=== PATIENT | female | born 1965 | race Caucasian/White ===

== ENCOUNTER 2016-06-09 17:04 | Emergency (ER) | payer BC, OTHER ==
[~2016-06-09] VITALS: Ht 162.6 cm; Wt 51.0 kg
[~2016-06-09 17:04] MED LIST: CLON.5 PO; LEXA20TA PO; LISI-363 PO; NEUR300C PO; OXYC30TA PO; PERC10TA27 PO; PROT40TA PO; SOMA350T PO; TOPI25TA2 PO; [UNRECOGNIZED DRUG - REMARK]
[2016-06-09 17:18] VITALS: BP 124/76; PULSE 92; RESP 16; TEMP 98.2; O2SAT 96
[2016-06-09] MEDS ORDERED: LISI-515 PO (18:47)
[2016-06-09] MEDS ORDERED: SOMA350T PO (18:47)
[2016-06-09] MEDS ORDERED: LEXA20TA PO (18:47)
[2016-06-09] MEDS ORDERED: [UNRECOGNIZED DRUG - CODE] PO (18:47)
[2016-06-09] MEDS ORDERED: TOPI1TAB36 PO (18:47)
[2016-06-09] MEDS ORDERED: LIDOCAINE 1%/EPINEPHrine 1:100,000 SOLN 20 ML VIAL INFIL ONE (19:15)
--- NOTE | 2016-06-09 19:17 | PD ---
HPI Chief Complaint: Skin Problem Time Seen by Provider: 19:10 Travel History International Travel<30 days: No Contact w/Intl Traveler<30days: No Traveled to known affect area: No History of Present Illness HPI 51 year-old female presents to the emergency room for evaluation of cystic acne. Patient states she first developed the lump 7 days ago. She went to her solder technician 3 days after the start and he gave her 2 cortisone injections and put her on Bactrim. Patient states cortisone injections didn't seem to help. She has been taking Bactrim as prescribed but states the cystic lesion seems to be increasing in size. She called her solder technician today and he recommended she come to the emergency room. Patient denies fever, chills, nausea, vomiting. Denies significant pain or drainage from the area. PFSH Past Medical History Blood Disorders: No Anxiety: Yes Cancer: No Cardiovascular Problems: Yes Chemotherapy: No Chest Pain: No Endocrine: No Genitourinary: No Hypertension: Yes Immune Disorder: No Musculoskeletal: Yes (SPINAL FUSION) Neurologic: No Psychiatric: No Reproductive: No Respiratory: Yes (PRN ALBUTERAL (SMOKER)) Renal Failure: No ?: Not Past Surgical History Abdominal Surgery: Yes ("STOMACH RUPTURE") AICD: No Appendectomy: Yes Arteriovenous Shunt: No Endocrine Surgery: Yes (APPENDECTOMY) Gynecologic Surgery: Yes (HYST) Hysterectomy: Yes Insulin Pump: No Joint Replacement: No Pacemaker: No Other Surgery: Yes (SPINAL FUSION) Social History Alcohol Use: Yes (SEVERAL TIMES PER WEEK) Tobacco Use: Yes (1PPD) Substance Use: Yes (POSITIVE FOR POT) Allergies-Medications (Allergen,Severity, Reaction): Coded Allergies: No Known Allergies (Verified , 06/09/16) Reported Meds & Prescriptions Reported Meds & Active Scripts Active Reported Biaxin (Clarithromycin) 250 Mg Tab 250 Mg PO BID Topiramate 50 Mg Tab 50 Mg PO TID Lisinopril 20 Mg Tab 20 Mg PO DAILY Lexapro (Escitalopram Oxalate) 20 Mg Tab 20 Mg PO DAILY Soma (Carisoprodol) 350 Mg Tab 350 Mg PO QID PRN Review of Systems Except as stated in HPI: all other systems reviewed are Neg Physical Exam Narrative GENERAL: Well-nourished, well-developed female in no acute distress. Afebrile. Ambulatory. SKIN: Warm and dry. There is an indurated area in the right lower lip which measures about 1 cm in diameter. It is fluctuant but there is no pointing or drainage. There is a zone of inflammation around it but no lymphangitis. HEAD: Normocephalic. EYES: No scleral icterus. No injection or drainage. NECK: Supple, trachea midline. No JVD or lymphadenopathy. Data Data Last Documented VS Vital Signs Date Time Temp Pulse Resp B/P Pulse Ox O2 Delivery O2 Flow Rate FiO2 06/09/16 17:18 98.2 92 16 124/76 96 Orders Lidocai-Epi 1%-1:100,000 Inj (Xylocaine- (06/09/16 19:15) MDM Medical Decision Making Medical Screen Exam Complete: Yes Emergency Medical Condition: Yes Medical Record Reviewed: Yes Differential Diagnosis Abscess versus folliculitis versus cystic acne Narrative Course 51-year-old female presents to the emergency room for evaluation of cystic acne that began one week ago. She went to her solder technician who put her on Bactrim and gave her 2 cortisone injections but she states it is not helping her symptoms. Physical exam reveals a 1 cm area of induration in the right lower lip. There is no lymphangitis, surrounding inflammation, increased warmth, pain , or purulent drainage. Appears to be more cystic than infected. Cyst was drained to alleviate pressure and collect culture. There is no purulent or foul -smelling drainage, just thick sebaceous drainage. Culture was sent to the lab but will likely not be useful as patient has been on antibiotics for 3 days. Told to follow up with the solder technician for further management of acne or return for worsening symptoms. She understands and agrees to plan. Procedures Procedure Narrative INCISION AND DRAINAGE OF ABSCESS: The area was prepped and was sterilely draped. A subcutaneous wheal of 1% lidocaine with epinephrine with a total number 2 mL was used to anesthetize the area properly. A number 11 scalpel was used to make a 0.3 cm incision across the area of the abscess. The abscess was drained, complex loculations were broken down, and irrigated with normal saline. Cultures were obtained. Sterile dressing applied. Diagnosis Primary Impression: Cutaneous abscess of face Referrals: [facility] Patient Instructions: Abscess (ED), General Instructions Additional Instructions: Rest and drink plenty of fluids. Continue Bactrim as directed, until gone. Follow up with a solder technician. Return to emergency room for worsening symptoms, as discussed. Disposition: 01 DISCHARGE HOME Condition: Stable Maureen Espinosa Jun 09, 2016 19:17
[2016-06-09] MEDS ORDERED: IBUPROFEN 600 MG TAB PO ONE (20:45)
== END 2016-06-09 20:58 | disposition home or self-care (01) ==
LOC: PHEFT 17:04
DX: L02.01 Cutaneous abscess of face (principal); I10 Essential (primary) hypertension; F17.210 Nicotine dependence, cigarettes, uncomplicated
CPT/HCPCS: 10060; 87070; 87205

== ENCOUNTER 2017-04-24 09:49 | Emergency (ER) | payer OTHER ==
[~2017-04-24] VITALS: Ht 160 cm; Wt 50.0 kg
[~2017-04-24 09:49] MED LIST changes: -CLON.5 PO; -LISI-363 PO; +LISI-515 PO; -NEUR300C PO; -OXYC30TA PO; -PERC10TA27 PO; -PROT40TA PO; -TOPI25TA2 PO; +TOPI50TA7 PO; +[UNRECOGNIZED DRUG - CODE] PO; -[UNRECOGNIZED DRUG - REMARK]
[2017-04-24 09:50] VITALS: BP 143/105; PULSE 114; RESP 20; TEMP 98.9; O2SAT 98
[2017-04-24] MEDS ORDERED: TOPI50TA7 PO (10:19)
[2017-04-24] MEDS ORDERED: PANT40TA3 PO (10:19)
[2017-04-24] MEDS ORDERED: CITA40TA4 PO (10:19)
[2017-04-24] MEDS ORDERED: BUSP15TA PO (10:19)
[2017-04-24] MEDS ORDERED: CLON1TAB PO (10:19)
[2017-04-24] MEDS ORDERED: PERC10TA27 PO (10:19)
[2017-04-24] MEDS ORDERED: MIRTA15 PO (10:19)
[2017-04-24] MEDS ORDERED: CLON1 PO (10:25)
--- NOTE | 2017-04-24 10:25 | PD ---
HPI Chief Complaint: Medical Clearance Time Seen by Provider: 10:07 Travel History International Travel<30 days: No Contact w/Intl Traveler<30days: No Traveled to known affect area: No History of Present Illness HPI So 52 year-old woman, brought in by family, on multiple anxiety medications including benzodiazepines, opioids,, SSRI, ran out of her medications several days ago. Has been jittery, not sleeping, having visual hallucinations. Brought in by family due to concern for the visual hallucinations. No auditory hallucinations. No confusion or delirium. No other complaints. History Past Medical History Narrative Medical Anxiety Tetanus Vaccination: < 5 Years Social History Alcohol Use: Yes (SEVERAL TIMES PER WEEK) Tobacco Use: Yes (1PPD) Allergies-Medications (Allergen,Severity, Reaction): Coded Allergies: No Known Allergies (Verified Adverse Reaction, Unknown, 04/24/17) Reported Meds & Prescriptions Reported Meds & Active Scripts Active Reported Mirtazapine 15 Mg Tab 15 Mg PO HS Topiramate 50 Mg Tab 50 Mg PO BID Citalopram (Citalopram Hydrobromide) 40 Mg Tab 40 Mg PO DAILY Clonazepam 1 Mg Tab 1 Mg PO QID Percocet (Oxycodone-Acetaminophen) 10-325 mg Tab 1 Tab PO Q4H PRN Pantoprazole (Pantoprazole Sodium) 40 Mg Tab 40 Mg PO DAILY Buspirone (Buspirone HCl) 15 Mg Tab 15 Mg PO TID Biaxin (Clarithromycin) 250 Mg Tab 250 Mg PO BID Topiramate 50 Mg Tab 50 Mg PO TID Lisinopril 20 Mg Tab 20 Mg PO DAILY Lexapro (Escitalopram Oxalate) 20 Mg Tab 20 Mg PO DAILY Soma (Carisoprodol) 350 Mg Tab 350 Mg PO QID PRN Review of Systems Except as stated in HPI: all other systems reviewed are Neg Physical Exam Narrative GENERAL: Well-appearing 52 year-old woman, no acute distress. Jittery and anxious. SKIN: Focused skin assessment warm/dry. HEAD: Atraumatic. Normocephalic. EYES: Pupils equal and round. No scleral icterus. No injection or drainage. ENT: No nasal bleeding or discharge. Mucous membranes pink and moist. NECK: Trachea midline. No JVD. CARDIOVASCULAR: Regular rate and rhythm. No murmur appreciated. RESPIRATORY: No accessory muscle use. Clear to auscultation. Breath sounds equal bilaterally. GASTROINTESTINAL: Abdomen soft, non-tender, nondistended. Hepatic and splenic margins not palpable. MUSCULOSKELETAL: No obvious deformities. No clubbing. No cyanosis. No edema. NEUROLOGICAL: Awake and alert. Tremulous. No obvious cranial nerve deficits. Motor grossly within normal limits. Normal speech. PSYCHIATRIC: Anxious, and otherwise normal mental status. Data Data Last Documented VS Vital Signs Date Time Temp Pulse Resp B/P (MAP) Pulse Ox O2 Delivery O2 Flow Rate FiO2 04/24/17 09:50 98.9 114 20 143/105 (118) 98 Room Air Orders Orders Clonazepam (Klonopin) (04/24/17 10:30) [facility] Medical Decision Making Medical Screen Exam Complete: Yes Emergency Medical Condition: Yes Differential Diagnosis Anxiety, psychiatric illness, drug withdrawal, delirium, other Narrative Course Medical decision making 52 year-old woman presents emergency Department with evidence of benzodiazepines withdrawal with some tachycardia and tremors. Looks well. No seizures. No delirium. Visual hallucinations most certainly related to drug effect. No other evidence of acute psychiatric disturbance. We'll replace short course benzodiazepines, twice daily. I spoke with the family member who will administer the medication to prevent inversion or abuse. Recommend outpatient follow-up with her primary prescriber. Diagnosis Primary Impression: Benzodiazepine abuse Additional Impression: Benzodiazepine withdrawal Additional Instructions: Take prescription medications only as prescribed. Follow-up with your primary prescriber on Sunday. Return to the emergency department for any new or worsening symptoms. Med/Other Pt SpecificInfo: Prescription(s) given Scripts Clonazepam (Klonopin) 1 Mg Tab 1 MG PO BID, #14 TAB 0 Refills Prov: Héctor Rawls MD 04/24/17 Disposition: 01 DISCHARGE HOME Condition: Stable Héctor Rawls MD Apr 24, 2017 10:25
[2017-04-24] MEDS ORDERED: clonazePAM 1 MG TAB PO ONE (10:30)
== END 2017-04-24 10:40 | disposition home or self-care (01) ==
LOC: NEPK 09:49
DX: F19.10 Other psychoactive substance abuse, uncomplicated (principal); F19.939 Other psychoactive substance use, unspecified with withdrawal, unspecified; R00.0 Tachycardia, unspecified; R25.1 Tremor, unspecified; R44.1 Visual hallucinations; F41.9 Anxiety disorder, unspecified; F17.200 Nicotine dependence, unspecified, uncomplicated; Z79.899 Other long term (current) drug therapy
CPT/HCPCS: 99283

== ENCOUNTER 2017-06-20 18:30 | Observation (INO) | payer OTHER ==
[~2017-06-20] VITALS: Ht 160 cm; Wt 49.0 kg
[~2017-06-20 18:30] MED LIST changes: +BUSP15TA PO; +CITA40TA4 PO; +CLON1 PO; +CLON1TAB PO; +MIRTA15 PO; +PANT40TA3 PO; +PERC10TA27 PO
[2017-06-20 21:31] VITALS: BP 138/75; PULSE 78; RESP 16; TEMP 98.9; O2SAT 96
[2017-06-20] MEDS ORDERED: SODIUM CHLORIDE 0.9% FLUSH 10 ML FLUSH IV FLUSH PRN (21:45)
[2017-06-20] MEDS ORDERED: ACETAMINOPHEN/HYDROcodone 325 MG/10 MG TAB PO PRN (22:00)
[2017-06-20] MEDS ORDERED: ACETAMINOPHEN/HYDROcodone 325 MG/5 MG TAB PO PRN (22:00)
--- NOTE | 2017-06-20 22:23 | HHI.HP ---
[facility] Service [facility] Primary Care Physician Jake Potter M.D. Admission Diagnosis Diagnoses: Chief Complaint: jaw pain Travel History International Travel<30 Days: No Contact w/Intl Traveler <30 Da: No History of Present Illness Transfer from [facility] for maxillofacial evaluation. 52 y/o female with a history of HTN, anxiety, depression and Gerd was a transfer from [facility] for a mandibular fracture and maxillofacial evaluation. Patient states on sunday she walked into her Kitchen and fell hitting her chin on the floor. She does take multiple anxiety and depression medication including Klonopin, and states they make her feel loopy. She denies any alcohol use. She denies any chest pain, sob, fever or chills. She states her pain is a 7 /10 throbbing to her right jaw, worse with talking, Mcclure has been helping, and no associated symptoms. Records from [facility] reviewed: According to patient's he noticed her to have seizure like activity, and states she was weaning herself off of some of her anxiety medications. EEG completed and negative, recommended to follow up with Neurology in 1-[address] Head showed a mandibular ramus fracture. CT spine showed no acute abnormalities. Labs and vitals remained stable. Review of Systems Except as stated in HPI: all other systems reviewed are Neg Past Family Social History Past Medical History HTN Anxiety Gerd Depression Past Surgical History Back and stomach surgery Reported Medications Reported Meds & Active Scripts Active Klonopin (Clonazepam) 1 Mg Tab 1 Mg PO BID Reported Mirtazapine 15 Mg Tab 15 Mg PO HS Topiramate 50 Mg Tab 50 Mg PO BID Citalopram (Citalopram Hydrobromide) 40 Mg Tab 40 Mg PO DAILY Clonazepam 1 Mg Tab 1 Mg PO QID Percocet (Oxycodone-Acetaminophen) 10-325 mg Tab 1 Tab PO Q4H PRN Pantoprazole (Pantoprazole Sodium) 40 Mg Tab 40 Mg PO DAILY Buspirone (Buspirone HCl) 15 Mg Tab 15 Mg PO TID Biaxin (Clarithromycin) 250 Mg Tab 250 Mg PO BID Topiramate 50 Mg Tab 50 Mg PO TID Lisinopril 20 Mg Tab 20 Mg PO DAILY Lexapro (Escitalopram Oxalate) 20 Mg Tab 20 Mg PO DAILY Soma (Carisoprodol) 350 Mg Tab 350 Mg PO QID PRN Allergies: Coded Allergies: No Known Allergies (Verified Allergy, Unknown, 06/20/17) Active Ordered Medications Current Medications Medications (Trade) Dose Ordered Sig/Elvie Route Start Time Stop Time Status Last Admin (NS Flush) 2 ml UNSCH PRN IV FLUSH 06/20/17 21:45 (NS Flush) 2 ml BID IV FLUSH 06/21/17 09:00 Family History Mom: Breast CA Dad: Throat CA Social History Tobacco use: 06/05 PPD Alcohol use: Quit 10 years ago Illicit drug use: Denies Physical Exam Vital Signs Vital Signs Date Time Temp Pulse Resp B/P (MAP) Pulse Ox O2 Delivery O2 Flow Rate FiO2 06/20/17 21:31 98.9 78 16 138/75 (96) 96 Physical Exam GENERAL: This is a well-nourished, well-developed patient, in no apparent distress. SKIN: abrasion under chin HEAD: Atraumatic. Normocephalic. EYES: Pupils equal round and reactive. Extraocular motions intact. ENT: Nose without bleeding, purulent drainage or septal hematoma. Airway patent. NECK: Trachea midline. No JVD or lymphadenopathy. CARDIOVASCULAR: Regular rate and rhythm without murmurs, gallops, or rubs. RESPIRATORY: Clear to auscultation. Breath sounds equal bilaterally. No wheezes , rales, or rhonchi. GASTROINTESTINAL: Abdomen soft, non-tender, nondistended. MUSCULOSKELETAL: Extremities without clubbing, cyanosis, or edema. Jaw tenderness. No calf tenderness. NEUROLOGICAL: Awake and alert. CMotor and sensory grossly within normal limits. Normal speech. Caprini VTE Risk Assessment Caprini VTE Risk Assessment: No/Low Risk (score <= 1) Caprini Risk Assessment Model Point Value = 1 Point Value = 2 Point Value = 3 Point Value = 5 Age 41-60 Minor surgery BMI > 25 kg/m2 Swollen legs Varicose veins or History of unexplained or recurrent spontaneous Oral contraceptives or hormone replacement Sepsis (< 1 month) Serious lung disease, including pneumonia (< 1 month) Abnormal pulmonary function Acute myocardial infarction Congestive heart failure (< 1 month) History of inflammatory bowel disease Medical patient at bed rest Age 61-74 Arthroscopic surgery Major open surgery (> 45 min) Laparoscopic surgery (> 45 min) Malignancy Confined to bed (> 72 hours) Immobilizing plaster cast Central venous access Age >= 75 History of VTE Family history of VTE Factor V Leiden Prothrombin [id number] Lupus anticoagulant Anticardiolipin antibodies Elevated serum homocysteine Heparin-induced thrombocytopenia Other congenital or acquired thrombophilia Stroke (< 1 month) Elective arthroplasty Hip, pelvis, or leg fracture Acute spinal cord injury (< 1 month) Prophylaxis Regimen Total Risk Factor Score Risk Level Prophylaxis Regimen 0-1 Low Early ambulation 2 Moderate Order ONE of the following: *Sequential Compression Device (SCD) *Heparin 5000 units SQ BID 3-4 Higher Order ONE of the following medications: *Heparin 5000 units SQ TID *Enoxaparin/Lovenox 40 mg SQ daily (WT < 150 kg, CrCl > 30 mL/min) *Enoxaparin/Lovenox 30 mg SQ daily (WT < 150 kg, CrCl > 10-29 mL/min) *Enoxaparin/Lovenox 30 mg SQ BID (WT < 150 kg, CrCl > 30 mL/min) AND/OR *Sequential Compression Device (SCD) 5 or more Highest Order ONE of the following medications: *Heparin 5000 units SQ TID (Preferred with Epidurals) *Enoxaparin/Lovenox 40 mg SQ daily (WT < 150 kg, CrCl > 30 mL/min) *Enoxaparin/Lovenox 30 mg SQ daily (WT < 150 kg, CrCl > 10-29 mL/min) *Enoxaparin/Lovenox 30 mg SQ BID (WT < 150 kg, CrCl > 30 mL/min) AND *Sequential Compression Device (SCD) Assessment and Plan Problem List: (1) Mandibular fracture, closed ICD Code: S02.609A - Fracture of mandible, unspecified, initial encounter for closed fracture Status: Acute (2) HTN (hypertension) ICD Code: I10 - Essential (primary) hypertension Status: Chronic (3) Anxiety ICD Code: F41.9 - Anxiety disorder, unspecified Status: Acute Assessment and Plan 52 y/o female with a history of HTN, anxiety, depression and Gerd was a transfer from [facility] for a mandibular fracture and maxillofacial evaluation. Mandibular fracture, subcondylar process Images reviewed from [facility] and discussed with Dr. Troy -Dr. Troy is not doing surgery, he states she can eat a pureed diet and follow up outpatient in 1 week, and can be cleared for discharge tomorrow -Pain management with PO Mcclure -Pureed diet ordered Seizure like activity at home, new onset -Records reviewed from [facility], EEG negative -Follow up with neurology in 1-2 weeks HTN, chronic, currently stable -Cont Lisinopril BID, monitor vitals Anxiety, chronic -Will resume medications when med rec is complete Tobacco abuse -Nicotine patch -Encouraged to quit DVT prophylaxis: SCDs 22:45 discussed with patient about discharging home and following up outpatient with neurology and maxillofacial, she is in agreement and wishes to go home tonight. Discharge patient to home Condition on discharge: Improved Pureed Diet as tolerated Ad Shaunna activity Rx written: Mcclure 5mg/325mg Q6HR PRN 28 tabs, Lisinopril 20mg BID Follow-up with primary care physician 2-3 days Neurology 1-2 weeks Maxillofacial in 1 week No Driving until cleared by neurology outpatient, patient verbalizes understanding Discussed Condition With Patient and RN Problem Qualifiers (1) Mandibular fracture, closed: Qualified Codes: S02.621A - Fracture of subcondylar process of right mandible, initial encounter for closed fracture Kasia Ye Jun 20, 2017 22:23
[2017-06-20] MEDS ORDERED: LISI-515 PO (22:55)
[2017-06-20] MEDS ORDERED: HYDR-3516 PO (22:55)
--- NOTE | 2017-06-20 22:59 | HHI.DCPOC ---
Discharge Care Plan Diagnosis: (1) Anxiety (2) HTN (hypertension) (3) Mandibular fracture, closed Goals to Promote Your Health * To prevent worsening of your condition and complications * To maintain your health at the optimal level Directions to Meet Your Goals Take your medications as prescribed Follow your dietary instruction Follow activity as directed Keep your appointments as scheduled Take your immunizations and boosters as scheduled If your symptoms worsen call your PCP, if no PCP go to Urgent Care Center or Emergency Room Smoking is Dangerous to Your Health. Avoid second hand smoke Call the 24-hour hour crisis hotline for domestic abuse at Kasia Ye Jun 20, 2017 22:59
--- NOTE | 2017-06-21 07:09 | MB ---
cc: ALMA TROY DMD DATE OF CONSULTATION June 20, 2017 REASON FOR CONSULTATION Right condyle fracture. HISTORY OF PRESENT ILLNESS This is a 52-year-old female who states that she fell for unknown reason. She was taken to [facility] on June 18, 2017. It was noted that she has a fracture of the right condylar region. I was called based on the report of the x-ray. The patient was admitted there. In order for me to assess the patient, the patient was transferred over here to this hospital. I have seen and examined this patient this evening. Her nurse is at bedside. She is alert, awake and oriented x3 in no acute distress. Reports some pain and discomfort as she point to the right-sided temporomandibular joint region. Denies any fever, chills, nausea, vomiting, shortness of breath, any difficulty breathing or difficulty swallowing. PAST MEDICAL HISTORY 1. Hypertension. 2. Neuropathy. 3. Acid reflux. MEDICATIONS 1. Gabapentin. 2. Lisinopril. 3. Oxycodone. 4. Pantoprazole. ALLERGIES Denied. SOCIAL HISTORY She denies any alcohol, any tobacco or any illicit drug use. EXAMINATION The facial bones are palpated. She has some mild edema on the right side of the face near the temporomandibular joint on the right side. Positive tenderness to palpation to that site. No other facial bone crepitus or tenderness that is noted. Positive range of motion of the neck. No tenderness noted. There is a laceration on the chin near the submental crease which is hemostatic which has been already sutured. Intraorally bite is in occlusion. The patient has a partial denture on the top and a full denture the bottom. Tissues are pink and well-perfused. Removed the denture. There is no false point of motion of the maxilla or the mandible. Tissues pink and well-perfused. Bite appears to be in occlusion. She is able to open and close the mouth but now she is guarding against pain secondary to the right side of the joint. CT scan of the facial bones from [facility] shows a medially displaced right condylar head fracture. It is displaced medially. VITALS: Temperature 98.9, pulse is 78, respiration rate 16, blood pressure 138/75, oxygen saturation of 96%. IMPRESSION AND PLAN This is a 52-year-old female who fell, unknown reason, with a displaced right condylar head fracture. At this time there is no surgical intervention needed from oral maxillofacial surgery standpoint. The plan is to get the lower denture. Pureed, blenderized diet. Warm compress to the right side of the face. The patient can follow up with me in my office in one week with Dr. Troy, [facility], . I also advised her of no full mouth or running. Okay to discharge t home from oral maxillofacial surgery standpoint. Oral maxillofacial surgery signing off. Recall as required. Alma Troy DMD RRT/YASMINE /10:17 PM /6:51 AM
[2017-06-21] MEDS ORDERED: NICOTINE 14 MG/24 HR PATCH T-DERMAL SCH (09:00)
[2017-06-21] MEDS ORDERED: REMOVE OLD PATCH T-DERMAL SCH (09:00)
[2017-06-21] MEDS ORDERED: LISINOPRIL 20 MG TAB PO SCH (09:00)
[2017-06-21] MEDS ORDERED: PANTOPRAZOLE SOD 20 MG DELAYED RELEASE TAB PO SCH (09:00)
[2017-06-21] MEDS ORDERED: SODIUM CHLORIDE 0.9% FLUSH 10 ML FLUSH IV FLUSH SCH (09:00)
== END 2017-06-21 00:02 | disposition home or self-care (01) ==
LOC: N07B 21:05
PROVIDERS: ADMIT Hospitalist; ATTEND Hospitalist
DX: S02.620 Fracture of subcondylar process of mandible, unspecified side (principal); R56.9 Unspecified convulsions; W19.XXXA Unspecified fall, initial encounter; I10 Essential (primary) hypertension; G62.9 Polyneuropathy, unspecified; K21.9 Gastro-esophageal reflux disease without esophagitis; F41.9 Anxiety disorder, unspecified; Y92.010 Kitchen of single-family (private) house as the place of occurrence of the external cause; F17.200 Nicotine dependence, unspecified, uncomplicated
CPT/HCPCS: G0378 ×2

== ENCOUNTER 2017-07-01 10:29 | Emergency (ER) | payer OTHER ==
[~2017-07-01] VITALS: Ht 160 cm; Wt 46.0 kg
[~2017-07-01 10:29] MED LIST changes: -CLON1TAB PO; +HYDR-3516 PO; -PERC10TA27 PO; -TOPI50TA7 PO; -[UNRECOGNIZED DRUG - CODE] PO
[2017-07-01 10:40] VITALS: BP 124/61; PULSE 93; RESP 16; TEMP 98.4; O2SAT 97
[2017-07-01] MEDS ORDERED: ACETAMINOPHEN/HYDROcodone 325 MG/5 MG TAB PO ONE (12:30)
--- NOTE | 2017-07-01 12:31 | PD ---
HPI Chief Complaint: Medication Refill Request Time Seen by Provider: 12:13 Travel History International Travel<30 days: No Contact w/Intl Traveler<30days: No Traveled to known affect area: No History of Present Illness HPI 52-year-old female presents emergency department requesting pain medication for a broken jaw that she sustained on June 18. Patient states that she was evaluated for her jaw and [facility] where she was diagnosed with a fractured jaw. Patient states she saw her primary care physician who prescribed her tramadol and advised to go to pain management. States that tramadol at has not helped her pain. Patient states she is unable to eat normally because of her pain. She is rather frustrated as she does not want her to pain management and says her PCP will not give her stronger pain medication. Says that she recently stopped her chronic pain medications on her own. PFSH Past Medical History Asthma: Yes Blood Disorders: No Anxiety: No Depression: Yes Heart Rhythm Problems: No Cancer: Yes (Cervical Cancer Stage 2) Cardiovascular Problems: Yes High Cholesterol: No Chemotherapy: No Chest Pain: No Congestive Heart Failure: No COPD: No Diminished Hearing: No Endocrine: No Gastrointestinal Disorders: Yes (Stomach ruptured) Genitourinary: No Hypertension: Yes Immune Disorder: No Musculoskeletal: No Neurologic: Yes (Seizures started on 06/18/2017) Psychiatric: Yes Reproductive: No Respiratory: Yes Radiation Therapy: No Renal Failure: No Sleep Apnea: No Tetanus Vaccination: < 5 Years Influenza Vaccination: No ?: Not Past Surgical History Abdominal Surgery: Yes ("STOMACH RUPTURE") AICD: No Appendectomy: Yes Arteriovenous Shunt: No Endocrine Surgery: Yes (APPENDECTOMY) Gynecologic Surgery: Yes (HYST) Hysterectomy: Yes Insulin Pump: No Joint Replacement: No Pacemaker: No Other Surgery: Yes (Stomach ruptured/Neck surgery/Hysterectomy/Appendix) Social History Alcohol Use: No (pt denies) Tobacco Use: Yes (1PPD) Substance Use: No Allergies-Medications (Allergen,Severity, Reaction): Coded Allergies: No Known Allergies (Verified Allergy, Unknown, 07/01/17) Reported Meds & Prescriptions Reported Meds & Active Scripts Active Lisinopril 20 Mg Tab 20 Mg PO BID Reported Citalopram (Citalopram Hydrobromide) 40 Mg Tab 40 Mg PO DAILY Pantoprazole (Pantoprazole Sodium) 40 Mg Tab 40 Mg PO DAILY Review of Systems Except as stated in HPI: all other systems reviewed are Neg Physical Exam Narrative GENERAL: Well-nourished and mild distress SKIN: Focused skin assessment warm/dry. HEAD: Atraumatic. Normocephalic. EYES: Pupils equal and round. No scleral icterus. No injection or drainage. ENT: No nasal bleeding or discharge. Mucous membranes pink and moist. Exquisite tenderness to the jaw line NECK: Trachea midline. No JVD. No tenderness to palpation of the neck CARDIOVASCULAR: Regular rate and rhythm. No murmur appreciated. RESPIRATORY: No accessory muscle use. Clear to auscultation. Breath sounds equal bilaterally. MUSCULOSKELETAL: No obvious deformities. No clubbing. No cyanosis. No edema. NEUROLOGICAL: Awake and alert. No obvious cranial nerve deficits. Motor grossly within normal limits. Normal speech. PSYCHIATRIC: Appropriate mood and affect; insight and judgment normal. Data Data Last Documented VS Vital Signs Date Time Temp Pulse Resp B/P (MAP) Pulse Ox O2 Delivery O2 Flow Rate FiO2 07/01/17 10:40 98.4 93 16 124/61 (82) 97 Orders Orders Acetamin-Hydrocod 325-5 Mg ([place] 5-325 (07/01/17 12:30) Ed Discharge Order (07/01/17 12:36) Ketorolac Inj (Toradol Inj) (07/01/17 12:45) [facility] Medical Decision Making Medical Screen Exam Complete: Yes Emergency Medical Condition: Yes Differential Diagnosis Jaw fracture, chronic pain medication, medication refill Narrative Course 52-year-old female presents emergency department requesting pain medication for a broken jaw that she sustained on June 18. Patient states that she was evaluated for her jaw and [facility] where she was diagnosed with a fractured jaw. Patient states she saw her primary care physician who prescribed her tramadol and advised to go to pain management. States that tramadol at has not helped her pain. Patient states she is unable to eat normally because of her pain. She is rather frustrated as she does not want her to pain management and says her PCP will not give her stronger pain medication. Says that she recently stopped her chronic pain medications on her own. Vital signs stable. I explained to the patient that I could not fill her pain medication as this is not an acute process. I advised patient to follow up with a primary care physician. States that she has and was given tramadol. She states that this medication does not work for her. Patient is rather agitated at my reluctance to fill her medication. I agreed to administer hydrocodone while she is here today. Patient mentions that she has recently come off of hydrocodone and was working on detox. Pt to go to PCP or pain management as previously discussed. Diagnosis Primary Impression: Jaw pain Referrals: [facility] Additional Instructions: Take medication as prescribed Follow-up with her primary care physician this week regarding her pain. Disposition: 01 DISCHARGE HOME Condition: Stable Pratibha Dunaway Jul 01, 2017 12:31
[2017-07-01] MEDS ORDERED: KETOROLAC TROMETHAMINE 60 MG/2 ML (IM) VIAL IM ONE (12:45)
== END 2017-07-01 13:13 | disposition home or self-care (01) ==
LOC: PHED 10:29 → PHEFT 13:13
DX: R68.84 Jaw pain (principal); J45.909 Unspecified asthma, uncomplicated; F32.9 Major depressive disorder, single episode, unspecified; I10 Essential (primary) hypertension; R56.9 Unspecified convulsions; F17.200 Nicotine dependence, unspecified, uncomplicated; Z76.0 Encounter for issue of repeat prescription; Z79.899 Other long term (current) drug therapy
CPT/HCPCS: 96372; 99284; J1885